=== PATIENT | female | born 1940 | race Caucasian/White ===

== ENCOUNTER 2019-02-11 11:24 | Day surgery (SDC) | payer MEDICARE, BC ==
[2019-02-05 14:09] VITALS: BMI 28.3
[~2019-02-11 11:24] MED LIST: LACTATED RINGERS 1,000 ML IV SCH
[2019-02-11 13:13] VITALS: TEMP 98.1
[2019-02-11] MEDS ORDERED: PROPOFOL 10 MG/ML 20 ML VIAL IV ONE (13:34)
--- NOTE | 2019-02-11 13:37 | P.GSHP ---
History of Present Illness H&P Date: 02/11/19 Chief Complaint: History of colitis This is a 71-year-old female who presents today for colonoscopy. Patient has history of colitis. She's had complaints of some abdominal pain and some mild change in bowel habit with diarrhea. Past Medical History Past Medical History: GERD/Reflux, GI Bleed, Hyperlipidemia, Hypertension, Osteoarthritis (OA), Skin Disorder Additional Past Medical History / Comment(s): back pain, hx ischemic colon, uti, SHINGLES 2000, DDD, HERNIATED DISC, SCIATICA, fx of humerus lt with 8 fractures ball of shoulder torn rotator cuff History of Any Multi-Drug Resistant Organisms: None Reported Past Surgical History: Appendectomy, Breast Surgery, Hysterectomy, Orthopedic Surgery Additional Past Surgical History / Comment(s): lumpectomy X2 RT AND X1 LT BENIGN , [place] [employer], lt knee meniscus repair, lt rotator cuff repair Past Anesthesia/Blood Transfusion Reactions: No Reported Reaction Additional Past Anesthesia/Blood Transfusion Reaction / Comment(s): CLAUSTROPHOBIA Smoking Status: Never smoker - Past Family History Father Family Medical History: Myocardial Infarction (NH) Additional Family Medical History / Comment(s): NH AT AGE 24- AT AGE 56 FROM 2 ND NH Mother Additional Family Medical History / Comment(s): JUST BEFORE 89RD BIRTHDAY- HAD HIP REPLACEMENT WENT TO [facility] C-DIFF WENT DOWN [facility] Medications and Allergies Home Medications Medication Instructions Recorded Confirmed Type diphenhydrAMINE HCL [Benadryl] 50 mg PO Q6H PRN 05/30/14 02/05/19 History ALPRAZolam [Xanax] 0.25 mg PO DAILY PRN 02/05/19 02/05/19 History HYDROcodone/APAP 7.5-325MG [[place] 1 tab PO DAILY PRN 02/05/19 02/05/19 History 7.5-325] Allergies Allergy/AdvReac Type Severity Reaction Status Date / Time meperidine HCl [From Demerol] Allergy vomitting Verified 02/11/19 12:52 prednisone AdvReac Rapid Verified 02/11/19 12:52 Heart Rate Surgical - Exam Vital Signs Temp Pulse Resp BP Pulse Ox 98.1 F 76 18 161/87 99 02/11/19 11:47 02/11/19 11:47 02/11/19 11:47 02/11/19 11:47 02/11/19 11:47 - General well developed, well nourished, no distress - Eyes PERRL - ENT normal pinna - Neck no masses - Respiratory normal expansion - Cardiovascular Rhythm: regular - Abdomen Abdomen: soft, non tender Assessment and Plan Assessment: History of colitis. We'll perform colonoscopy.
--- NOTE | 2019-02-11 14:00 | P.OP ---
Date of Procedure: 02/11/19 Preoperative Diagnosis: Colitis Postoperative Diagnosis: Diverticulosis Left colon polyp Procedure(s) Performed: Colonoscopy Anesthesia: MAC Surgeon: Wei Zaragoza Pathology: other (Colon polyp) Condition: stable Disposition: PACU Description of Procedure: The patient's placed on the endoscopy table in the lateral position.. She received IV sedation. Digital rectal exam was performed which revealed no abnormalities. Flexible colonoscope was then placed patient anus passed throughout the colon. The colonoscope could not be advanced beyond the mid right colon due to tortuosity valve. This point scope was withdrawn. The right colon appeared normal. The transverse colon appeared normal. In the descending colon there was a few scattered diverticula. In the sigmoid colon there is more diverticula seen. Scope was then brought back the rectum and this appeared normal. Scope withdrawn for patient.
[2019-02-11 14:21] VITALS: BP 132/88; PULSE 77; RESP 16
--- NOTE | 2019-02-16 12:21 | CDI ---
Outpatient Documentation Clarification Form Date: 02/16/19 CDS/Brick Dropper Name: Natalya Shane Phone: If any questions, call Madyson Wilson Hr Representative at [phone] Patient Name: Asha Jessica Admit Date: 02/11/19 Discharge Date: 02/11/19 ATTENTION: The [facility] Coding Staff appreciate your assistance in clarifying documentation. Please respond to the clarification below the line at the bottom and electronically sign. The [facility] Coding staff will review the response and follow-up if needed. Please note: Queries are made part of the Legal Health Record. If you have any questions, please contact the Hr Representative. Dear Dr. Zaragoza, Please provide clarification as to whether there was a biopsy performed and is so what type of biopsy. The operative reprt does not state anything about a biopsy (or type of biopsy) being performed. . There is, however, a pathology report attached to this chart and also the procedure code that the department entered reflects that a biopsy was performed. Please clarify. Thank you for your kind consideration. Operative note addendum made MTDD
== END 2019-02-11 15:37 | disposition home or self-care (01) ==
LOC: ORWHC2ENDO 11:24
PROVIDERS: ATTEND Surgery
DX: D12.4 Benign neoplasm of descending colon (principal); K57.30 Diverticulosis of large intestine without perforation or abscess without bleeding; Q43.8 Other specified congenital malformations of intestine; I10 Essential (primary) hypertension; E78.5 Hyperlipidemia, unspecified; K21.9 Gastro-esophageal reflux disease without esophagitis; M19.90 Unspecified osteoarthritis, unspecified site; Z90.49 Acquired absence of other specified parts of digestive tract; K52.9 Noninfective gastroenteritis and colitis, unspecified; Z90.710 Acquired absence of both cervix and uterus; F41.9 Anxiety disorder, unspecified; F40.240 Claustrophobia; M54.30 Sciatica, unspecified side; Z82.49 Family history of ischemic heart disease and other diseases of the circulatory system; Z79.891 Long term (current) use of opiate analgesic; Z79.899 Other long term (current) drug therapy; Z88.5 Allergy status to narcotic agent; Z88.8 Allergy status to other drugs, medicaments and biological substances
CPT/HCPCS: 45380; 88305; J2704; 45385